=== PATIENT | female | born 1985 | race Caucasian/White ===

== ENCOUNTER 2022-02-22 05:21 | Inpatient (IN) | payer MEDICAID ==
[~2022-02-22 05:21] MED LIST: Acetaminophen/oxyCODONE 325-5 MG Tab PO PRN; Albuterol 0.083% 2.5 MG/3 ML Neb Soln NEB PRN; HYDROmorphone 1 MG/ML Syringe IVPUSH PRN; Metoclopramide 10 MG/2 ML SDV IVPUSH PRN; Morphine 4 MG/ML VIAL IVPUSH PRN; Naloxone 0.4 MG/ML SDV IVPUSH PRN; Ondansetron 4 MG/2 ML SDV IVPUSH PRN; diphenhydrAMINE 50 MG/ML SDV IVPUSH PRN; ePHEDrine 50 MG/ML SDV IVPUSH PRN; fentaNYL 100 MCG/2 ML SDV IVPUSH PRN
[2022-02-22] MEDS: Lactated Ringers 1,000 ML IV SCH ×2 (05:45→07:29)
[2022-02-22] MEDS ORDERED: ceFAZolin 2 GM in Premix Bag 1 BAG IV ONE (05:50)
[2022-02-22] MEDS ORDERED: Sodium Chloride 0.9% 2.5 ML Syringe FLUSH PRN (05:50)
[2022-02-22] MEDS ORDERED: Sodium Chloride 0.9% 20 ML SDV IV PRN (05:50)
[2022-02-22] MEDS ORDERED: Sodium Chloride 0.9% 10 ML Syringe FLUSH PRN (05:50)
[2022-02-22] MEDS ORDERED: Citric Acid/Sodium Citrate Solution 30 ML Cup PO ONE (05:50)
[2022-02-22] MEDS ORDERED: Oxytocin/0.9 % Sodium Chloride 30 UNIT/500 ML BAG IV SCH (06:00)
[2022-02-22] MEDS ORDERED: Morphine PF 10 MG/10 ML SDV ONE (07:23)
[2022-02-22] MEDS ORDERED: fentaNYL 100 MCG/2 ML SDV ONE (07:24)
[2022-02-22] MEDS ORDERED: Phenylephrine 1% 10 MG/ML SDV ONE (07:47)
[2022-02-22] MEDS ORDERED: Lidocaine 2% 100 MG/5 ML Syringe ONE (07:47)
[2022-02-22] MEDS ORDERED: Ropivacaine 0.5% 5 MG/ML 30 ML SDV ONE ×2 (07:47)
[2022-02-22] MEDS ORDERED: Oxytocin 10 Units/1 ML SDV ONE ×3 (07:47)
[2022-02-22] MEDS ORDERED: Ondansetron 4 MG/2 ML SDV ONE ×2 (07:47)
[2022-02-22] MEDS ORDERED: Clindamycin Phosphate in D5W 900 MG in Premix Bag 1 BAG IV ONE ×2 (08:10)
[2022-02-22] MEDS ORDERED: diphenhydrAMINE 50 MG/ML SDV IVPUSH PRN (12:52)
[2022-02-22] MEDS ORDERED: Methylergonovine 0.2 MG/1 ML Amp IM PRN (12:52)
[2022-02-22] MEDS ORDERED: Bisacodyl 10 MG Supp RECTAL PRN (12:52)
[2022-02-22] MEDS ORDERED: Misoprostol 200 MCG Tab RECTAL PRN (12:52)
[2022-02-22] MEDS ORDERED: Lanolin 100% Cream 7 GM Tube TOP PRN (12:52)
[2022-02-22] MEDS ORDERED: Acetaminophen/oxyCODONE 325-5 MG Tab PO PRN (12:52)
[2022-02-22] MEDS ORDERED: Tranexamic Acid 1,000 MG in Sodium Chloride 0.9% 100 ML IV PRN (12:52)
[2022-02-22] MEDS ORDERED: Oxytocin 10 Units/1 ML SDV IM PRN (12:52)
[2022-02-22] MEDS ORDERED: Ondansetron 4 MG/2 ML SDV IVPUSH PRN (12:52)
[2022-02-22] MEDS ORDERED: Lactated Ringers 1,000 ML IV SCH (13:00)
[2022-02-22] MEDS: Acetaminophen 1,000 MG in Premix Bag 1 BAG IV SCH ×2 (15:29→21:32)
[2022-02-22] MEDS: Docusate Sodium 100 MG Cap PO SCH (21:36)
[2022-02-23] MEDS: Acetaminophen 1,000 MG in Premix Bag 1 BAG IV SCH ×2 (03:42→12:46)
[2022-02-23] MEDS: Docusate Sodium 100 MG Cap PO SCH ×2 (08:47→21:51)
[2022-02-23] MEDS ORDERED: Sodium Chloride 0.9% 500 ML IV SCH (09:45)
[2022-02-23] MEDS: Acetaminophen/oxyCODONE 325-5 MG Tab PO PRN ×2 (12:47→17:24)
[2022-02-23] MEDS ORDERED: Acetaminophen/oxyCODONE 325-5 MG Tab PO ONE (18:06)
[2022-02-24] MEDS: Docusate Sodium 100 MG Cap PO SCH (09:03)
== END 2022-02-24 16:20 | disposition home or self-care (01) | DRG 788 ==
LOC: MW.OB 05:21
PROVIDERS: ADMIT Obstetrics & Gynecology; ATTEND Obstetrics & Gynecology
PROC: 10D00Z1 Extraction of Products of Conception, Low, Open Approach (ICD-10-PCS; principal; 2022-02-22)
PROC: 30233N1 Transfusion of Nonautologous Red Blood Cells into Peripheral Vein, Percutaneous Approach (ICD-10-PCS; 2022-02-22)
DX: O34.211 Maternal care for low transverse scar from previous cesarean delivery (principal); O99.344 Other mental disorders complicating childbirth; F32.A Depression, unspecified; O99.214 Obesity complicating childbirth; E66.9 Obesity, unspecified; O99.284 Endocrine, nutritional and metabolic diseases complicating childbirth; E05.00 Thyrotoxicosis with diffuse goiter without thyrotoxic crisis or storm; O99.02 Anemia complicating childbirth; D64.9 Anemia, unspecified; F41.9 Anxiety disorder, unspecified; O64.1XX0 Obstructed labor due to breech presentation, not applicable or unspecified; Z3A.39 39 weeks gestation of pregnancy; Z37.0 Single live birth; Z88.0 Allergy status to penicillin; Z88.8 Allergy status to other drugs, medicaments and biological substances; Z88.1 Allergy status to other antibiotic agents; Z79.899 Other long term (current) drug therapy; Z87.891 Personal history of nicotine dependence
CPT/HCPCS: 01961; 36415; 36430; 59025; 64488; 85014; 85018; 85027; 86592; 86850; 86900; 86901; 86920; A9270-GY; J0131; J1790; J2274; J2370; J2405; J2590; J2795; J3010; J3490; J7120; P9016